=== PATIENT | male | born 1940 | race Caucasian/White ===

== ENCOUNTER 2016-10-22 16:14 | Emergency (ER) | payer OTHER, BC ==
[~2016-10-22] VITALS: Ht 172.7 cm; Wt 74.7 kg
[~2016-10-22 16:14] MED LIST: CAL-CITRATE PL1 EACH PO; CLARITIN,ALAVAR10 MG PO; DAILY VALUE1 EACH PO; GLUCOSAMINE CH1 EAC2 PO; LIPITOR10 MG PO; LO-DOSE ASPIRIN81 M1 PO; PRILOSEC20 MG PO
[2016-10-22 17:39] LABS: ADD MIUA? NO; BILIRUBIN NEGATIVE; BLOOD NEGATIVE; COLOR YELLOW ((YELLOW)); GLUCOSE (STRIP) NEGATIVE; KETONES NEGATIVE; LEUKOCYTES NEGATIVE; NITRITE NEGATIVE; PROTEIN (STRIP) NEGATIVE; UCUL ADDED? NO; UROBILINOGEN 0.2 MG/DL (0.2-1.0)
[2016-10-22] MEDS ORDERED: FLOMAX0.4 MG PO (20:45)
[2016-10-22 21:02] LABS: HEMATOCRIT 40.1 % (38.0-50.0); MCH 32.9 PG (29.0-34.0); MCHC 34.4 G/DL (30.0-36.0); MCV 95.7 FL (86-99); PLATELET COUNT 271 K/uL (156-360); RBC DIS.WIDTH-CV 13.2 % (11.8-14.6); RBC DIS.WIDTH-SD 46.8 % (39-53); RED BLOOD COUNT 4.19 M/uL (4.00-5.50); WHITE BLOOD COUNT 8.7 K/uL (4.1-10.2)
[2016-10-22 21:13] LABS: CHLORIDE 103 mEq/L (99-109); POTASSIUM 4.2 mEq/L (3.7-5.4); SODIUM 137 mEq/L (136-147)
[2016-10-22 21:14] LABS: GLUCOSE 130 mg/dL (70-99)
[2016-10-22 21:16] LABS: ANION GAP 9 MEQ/L (2-14)
[2016-10-22 21:18] LABS: GFR ESTIMATE (CALCULATED) > 59 mL/min/
[2016-10-22 21:19] LABS: UREA NITROGEN (BUN) 15 mg/dL (9-23)
[2016-10-22 22:08] VITALS: BP 147/87
== END 2016-10-22 22:09 | disposition home or self-care (01) ==
LOC: EME 16:14
PROVIDERS: Physician Assistant Medical
PROC: 0T9B70Z Drainage of Bladder with Drainage Device, Via Natural or Artificial Opening (ICD-10-PCS; principal; 2016-10-22)
DX: N40.1 Benign prostatic hyperplasia with lower urinary tract symptoms (principal); R33.8 Other retention of urine; K21.9 Gastro-esophageal reflux disease without esophagitis
CPT/HCPCS: 74176; 80048; 81003; 85027; 99281; 99284

== ENCOUNTER 2017-02-11 14:16 | Emergency (ER) | payer OTHER, BC ==
[~2017-02-11] VITALS: Ht 172.7 cm; Wt 72.5 kg
[~2017-02-11 14:16] MED LIST changes: +FLOMAX0.4 MG PO
[2017-02-11 14:44] LABS: HEMATOCRIT 33.5 % (38.0-50.0); MCH 32.7 PG (29.0-34.0); MCHC 34.3 G/DL (30.0-36.0); MCV 95.2 FL (86-99); MEAN PLAT.VOLUME 9.1 uM^3 (9.0-12.4); PLATELET COUNT 226 K/uL (156-360); RBC DIS.WIDTH-CV 13.2 % (11.8-14.6); RBC DIS.WIDTH-SD 45.9 % (39-53); RED BLOOD COUNT 3.52 M/uL (4.00-5.50); WHITE BLOOD COUNT 11.4 K/uL (4.1-10.2)
[2017-02-11 14:50] LABS: INTER. NORMALIZED RATIO 1.1; PROTHROMBIN TIME 12.6 SEC (10.2-12.9)
[2017-02-11 14:52] LABS: CHLORIDE 103 mEq/L (99-109); POTASSIUM 3.9 mEq/L (3.7-5.4); SODIUM 136 mEq/L (136-147)
[2017-02-11 14:53] LABS: GLUCOSE 199 mg/dL (70-99); PTT 22.6 SEC (25-37)
[2017-02-11 14:55] LABS: ANION GAP 13 MEQ/L (2-14)
[2017-02-11 14:57] LABS: GFR ESTIMATE (CALCULATED) > 59 mL/min/
[2017-02-11 14:58] LABS: UREA NITROGEN (BUN) 15 mg/dL (9-23)
[2017-02-11 15:59] VITALS: BP 104/62
== END 2017-02-11 16:01 | disposition home or self-care (01) ==
LOC: EME 14:16
PROVIDERS: Emergency Medicine
DX: K91.841 Postprocedural hemorrhage of a digestive system organ or structure following other procedure (principal); K92.1 Melena; N40.0 Benign prostatic hyperplasia without lower urinary tract symptoms; R97.20 Elevated prostate specific antigen [PSA]; Z98.890 Other specified postprocedural states; Z79.82 Long term (current) use of aspirin
CPT/HCPCS: 80048; 85027; 85610; 85730; 99281; 99283; J2405